=== PATIENT | male | born 1990 | race Caucasian/White ===

== ENCOUNTER 2022-04-30 15:27 | Outpatient (CLI) | payer OTHER ==
--- NOTE | 2022-04-30 18:40 | XRAY Report ---
PROCEDURE: Chest 2 View X-Ray INDICATIONS: PAIN TECHNIQUE: 2 views of the chest were acquired. COMPARISON: None. FINDINGS: Surgical changes and devices: None. Lungs and pleura: No pleural effusions or pneumothorax. Lungs are clear. Mediastinum: Mediastinal contours are normal. Heart size is normal. Bones and chest wall: No suspicious bony abnormalities. Soft tissues appear unremarkable. IMPRESSION: No acute cardiopulmonary abnormality. Reviewed by: Kurtis Redmond MD on 04/30/2022 6:39 PM PST Approved by: Kurtis Redmond MD on 04/30/2022 6:39 PM [facility] Station ID: [id number]
--- NOTE | 2022-04-30 18:42 | XRAY Report ---
PROCEDURE: Lumbar Spine 2 View INDICATIONS: PAIN TECHNIQUE: 2 views of the lumbar spine were acquired. COMPARISON: None. FINDINGS: Bones: 5 xqt-igg-[id number] vertebrae are present. No significant curvature or listhesis of the lumbar spine. Minimal disc height loss L5-S1 and mild facet arthropathy at this level. Soft tissues: Overlying bowel gas pattern is normal. A 2-3 mm calcification projects over the right kidney. IMPRESSION: 1. Mild degenerative changes L5-S1. 2. A 2-3 mm calcification projects over the right kidney, nonspecific, could represent a renal stone. CT KUB could be obtained if clinically indicated. Reviewed by: Kurtis Redmond MD on 04/30/2022 6:41 PM PST Approved by: Kurtis Redmond MD on 04/30/2022 6:41 PM PST Station ID: [id number]
--- NOTE | 2022-04-30 18:44 | XRAY Report ---
PROCEDURE: Thoracic Spine 2 View INDICATIONS: PAIN TECHNIQUE: 2 views of the thoracic spine were acquired. COMPARISON: None. FINDINGS: Bones: No fractures or dislocations. No suspicious bony lesions. 12 pairs of ribs are noted, and a ppear intact where visualized. Mild multilevel degenerative changes present. Soft tissues: No paravertebral stripe thickening. IMPRESSION: No definite thoracic spine fracture identified radiographically. If symptoms persist, follow-up radio graphs and/or CT or MRI may be helpful for further evaluation. Reviewed by: Kurtis Redmond MD on 04/30/2022 6:43 PM PST Approved by: Kurtis Redmond MD on 04/30/2022 6:43 PM [facility] Station ID: [id number]
== END 2022-04-30 15:28 | disposition home or self-care (01) ==
LOC: DI 15:27
PROVIDERS: ATTEND Registered Nurse
DX: R07.81 Pleurodynia (principal); M47.817 Spondylosis without myelopathy or radiculopathy, lumbosacral region; N28.89 Other specified disorders of kidney and ureter; M54.6 Pain in thoracic spine

== ENCOUNTER 2022-09-17 13:44 | Outpatient (CLI) | payer OTHER ==
--- NOTE | 2022-09-17 19:08 | MRI Report ---
PROCEDURE: LUMBAR SPINE WO INDICATIONS: LOW BACK PAIN TECHNIQUE: Noncontrast sagittal T1 spin echo and T2 fast echo, sagittal STIR, axial T1 and T2 fast spin echo thr ough the lumbar spine. In cases with scoliosis, additional coronal T2 fast spin echo may be performe d. COMPARISON: Lumbar spine radiographs dated 04/30/2022 FINDINGS: Image quality: Excellent. Alignment and Curvature: There is normal bony alignment. Bone Marrow: Marrow is of normal overall signal. No acute vertebral body compression fractures. Spinal Cord: Conus medullaris terminates at the L1-2 level. Visualized cord demonstrates normal sig nal and size. Paraspinous Soft Tissues: No paravertebral masses. T12-L1: No significant neuroforaminal stenosis or spinal canal stenosis. L1-L2: No significant neuroforaminal stenosis or spinal canal stenosis. L2-L3: No significant neuroforaminal stenosis or spinal canal stenosis. L3-L4: No significant neuroforaminal stenosis or spinal canal stenosis. L4-L5: No significant neuroforaminal stenosis or spinal canal stenosis. L5-S1: No significant neuroforaminal stenosis or spinal canal stenosis. IMPRESSION: MRI lumbar spine without acute abnormalities. No significant neuroforaminal stenosis or spinal canal stenosis. No significant spondylitic changes identified. Reviewed by: Eloy Meadows MD on 09/17/2022 6:06 PM [facility] Approved by: Eloy Meadows MD on 09/17/2022 6:06 PM [facility] Station ID: [id number]
== END 2022-09-17 13:45 | disposition home or self-care (01) ==
LOC: DI 13:44
DX: M54.50 Low back pain, unspecified (principal)

== ENCOUNTER 2023-05-21 18:29 | Emergency (ER) | payer OTHER ==
[2023-05-21 18:40] VITALS: O2SAT 100
--- NOTE | 2023-05-21 18:42 | ED Physician Documentation ---
PD HPI ABD PAIN - Stated complaint Stated Complaint: - Chief complaint Chief Complaint: Abd Pain - History obtained from History obtained from: Patient - Additional information Additional information: He has a remote history of a single conservatively manage kidney stone many years ago. Starting today he developed left flank pain and gross hematuria. The pain is quite severe. No nausea or vomiting. No fevers. PD PAST MEDICAL HISTORY - Past Medical History Past Medical History: Yes Psych: Depression - Past Surgical History Past Surgical History: Yes General: Appendectomy - Present Medications Home Medications: Ambulatory Orders Medication Instructions Recorded Confirmed Ibuprofen [Motrin] 600 mg PO Q6H PRN #20 tab 05/21/23 Oxycodone HCl/Acetaminophen 1 - 2 each PO Q6H PRN #14 tablet 05/21/23 [Percocet 5-325 mg Tablet] - Allergies Allergies/Adverse Reactions: Allergies Allergy/AdvReac Type Severity Reaction Status Date / Time No Known Drug Allergies Allergy Verified 05/21/23 18:31 - Social History Does the pt smoke?: No Smoking Status: Never smoker Does the pt drink ETOH?: No Does the pt have substance abuse?: No - Immunizations Immunizations are current?: Yes - POLST Patient has POLST: No PD ED PE NORMAL - Vitals Vital signs reviewed: Yes - General General: Alert and oriented X 3, Other (Appears uncomfortable) - Abdomen Abdomen: Non tender - Back Back: No CVA TTP - Neuro Neuro: Alert and oriented X 3 Results - Vitals Vitals: Vital Signs - 24 hr 05/21/23 18:31 Temperature 36.8 C Heart Rate 60 Respiratory 16 Rate Blood Pressure 133/81 H O2 Saturation 100 Oxygen O2 Source Room air - Labs Labs: Laboratory Tests 05/21/23 05/21/23 05/21/23 18:45 18:45 19:05 WBC 4.9 RBC 4.53 L Hgb 13.7 L Hct 40.6 L MCV 89.6 MCH 30.2 MCHC 33.7 RDW 12.1 Plt Count 256 MPV 10.2 Neut # (Auto) 2.5 Lymph # (Auto) 1.7 [place] # (Auto) 0.5 Eos # (Auto) 0.1 Baso # (Auto) 0.0 Absolute Nucleated RBC 0.00 Nucleated RBC % 0.0 Sodium 139 Potassium 3.6 Chloride 103 Carbon Dioxide 31 Anion Gap 5.0 L BUN 13 Creatinine 0.8 Estimated GFR (MDRD) 114 Glucose 105 H Calcium 10.0 Total Bilirubin 0.6 AST 19 ALT 38 Alkaline Phosphatase 53 Total Protein 7.6 Albumin 4.9 Globulin 2.7 Albumin/Globulin Ratio 1.8 Urine Color RED/BLOODY Urine Clarity CLOUDY Urine pH 8.0 H Ur Specific [place] 1.020 Urine Protein 100 H Urine Glucose (UA) NEGATIVE Urine Ketones NEGATIVE Urine Occult Blood LARGE H Urine Nitrite NEGATIVE Urine Bilirubin NEGATIVE Urine Urobilinogen 4 H Ur Leukocyte Esterase NEGATIVE Urine RBC TNTC H Urine WBC 0-3 Ur Squamous Epith Cells FEW Squamous Urine Bacteria Rare Ur Microscopic Review INDICATED Urine Culture Comments NOT INDICATED - Rads (name of study) ct kub Relevant Findings:: Final report received, EMP independent interpretation of test PD Medical Decision Making - ED course ED course: He has a history of renal colic and presents with colicky pain and gross hematuria. He appears uncomfortable but did improve with pain medications here. Workup demonstrates mild nonspecific anemia, normal chemistries, and bloody urine without infection. Pain was treated stepwise with Toradol and Dilaudid with good effect. Subsequently a CT scan was obtained showing 2 mm left ureteral stone and also a 4 mm right ureteral stone without obstruction on the right side. The left side was bothering him. He has multiple stones in both kidneys though and urologic follow-up was advised. Departure - Departure Disposition: 01 Home, Self Care Clinical Impression: Renal colic on left side Condition: Good Record reviewed to determine appropriate education?: Yes Instructions: ED Stone Renal W Colic Prescriptions: Ibuprofen [Motrin] 600 mg PO Q6H PRN #20 tab PRN Reason: Pain Oxycodone HCl/Acetaminophen [Percocet 5-325 mg Tablet] 1 - 2 each PO Q6H PRN #14 tablet PRN Reason: pain Comments: I sent your prescription electronically to the [facility] pharmacy. As discussed, you have multiple kidney stones on both sides and there was a tiny stone in the left ureter that is causing your pain today. 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 Return for new or worsening symptoms. I am prescribing a short course of narcotic pain medication for you. These are potentially dangerous and addictive medications that should be used carefully. These medications may constipate you. Take an rzrc-fqf-fvaymtk stool softener (docusate) twice daily with plenty of water while taking these medications. If you go 24 hours without a bowel movement, take vcre-jew-zrtqopo miralax, per package instructions. Do not drink or drive while taking these medications. If you received narcotic or sedating medications while in the emergency department, do not drive for 24 hours. Store this medication in a safe, secure place and out of reach of children. It is a violation of federal law to give or sell this medication to another person or to use in a manner other than prescribed. The ED will not refill narcotic prescriptions, including prescriptions lost or stolen. To dispose of unwanted medications: 1. [facility] provides a drop box for medication in pill form only (no liquids) 8:00 am to 4:30 p.m. Saturday-Saturday in the lobby of the [facility], [address] [place] [address]. Empty pills into ziplock bag before disposal. Call [phone] for information. 2.[employer] is a free service available to all [facility] residents. Go to [email or web address]/ Note that many narcotic pain relievers also contain Tylenol/acetaminophen. Please ensure that your total dose of acetaminophen from all sources does not exceed 3 g (3000 mg) per day. Forms: Activity restrictions
[2023-05-21 18:51] LABS: BASOPHILS % (AUTO) 0.8 %; EOSINOPHILS # (AUTO) 0.1 10^3/uL (0.0-0.7); EOSINOPHILS % (AUTO) 2.5 %; HCT - HEMATOCRIT 40.6 % (42.0-52.0); HGB - HEMOGLOBIN 13.7 g/dL (14.0-18.0); LYMPHOCYTES # (AUTO) 1.7 10^3/uL (1.5-3.5); MEAN CORPUSCULAR HEMOGLOBIN 30.2 pg (27.0-31.0); MEAN CORPUSCULAR HGB CONC 33.7 g/dL (32.0-36.0); MEAN CORPUSCULAR VOLUME 89.6 fL (80.0-94.0); MEAN PLATELET VOLUME 10.2 fL (7.4-11.4); MONOCYTES # (AUTO) 0.5 10^3/uL (0.0-1.0); MONOCYTES % (AUTO) 10.3 %; NEUTROPHILS # (AUTO) 2.5 10^3/uL (1.5-6.6); NEUTROPHILS % (AUTO) 52.2 %; PLT - PLATELET COUNT 256 10^3/uL (130-450); RED BLOOD COUNT 4.53 10^6/uL (4.70-6.10); RED CELL DISTRIBUTION WIDTH 12.1 % (12.0-15.0); WHITE BLOOD COUNT 4.9 x10^3/uL (4.8-10.8)
[2023-05-21] MEDS: KETOROLAC 15 MG/ML VIAL IVP STA (19:02)
[2023-05-21] MEDS: HYDROmorphone 1 MG/ML CARPUJECT IVP STA ×2 (19:03→21:06)
[2023-05-21 19:08] LABS: ALBUMIN 4.9 g/dL (3.2-5.5); ALBUMIN/GLOBULIN RATIO 1.8 (1.0-2.2); BILIRUBIN,TOTAL 0.6 mg/dL (0.2-1.0); CREATININE 0.8 mg/dL (0.6-1.3); POTASSIUM 3.6 mmol/L (3.5-4.5); TOTAL PROTEIN 7.6 g/dL (6.4-8.9)
[2023-05-21 19:37] LABS: BILIRUBIN,URINE NEGATIVE (NEGATIVE); GLUCOSE, URINE (UA) NEGATIVE (NEGATIVE); KETONES,URINE (UA) NEGATIVE (NEGATIVE); LEUKOCYTE ESTERASE, URINE NEGATIVE (NEGATIVE); NITRITE,URINE NEGATIVE (NEGATIVE); OCCULT BLOOD,URINE LARGE (NEGATIVE); PROTEIN,URINE 100 mg/dL (NEGATIVE); UROBILINOGEN,URINE 4 E.U./dL (NORMAL)
[2023-05-21 19:38] LABS: CLARITY,URINE CLOUDY (CLEAR)
[2023-05-21 19:39] LABS: BACTERIA,URINE Rare /HPF (None Seen); RBC,URINE TNTC /HPF (0-5); SQUAMOUS EPITHELIAL CELL,UR FEW Squamous (<= Few); WBC,URINE 0-3 /HPF (0-3)
--- NOTE | 2023-05-21 20:09 | CT Report ---
PROCEDURE: Abdomen/Pelvis WO INDICATIONS: L flank pain TECHNIQUE: A CT scan of the abdomen and pelvis was performed without the use of intravenous contrast. Images we re recorded and evaluated at appropriate window settings. Reformats: coronal and sagittal. For radiat ion dose reduction, the following was used: automated exposure control, adjustment of mA and/or kV ac cording to patient size. COMPARISON: None. FINDINGS: Image quality: Diagnostic. Lower chest: Unremarkable. Liver: No contour-deforming mass. Gallbladder and biliary tree: No radiopaque stones or wall thickening. No biliary dilation. Spleen: No splenomegaly. Pancreas: No pancreatic ductal dilation. Adrenals: No adrenal nodule. Kidneys and ureters: Multiple bilateral renal stones identified. These measure up to 2 mm on the righ t and 3 mm on the left. There is minimal left hydroureter secondary to a nonobstructing 2 mm mid righ t ureteral stone (90/series 2). There is also a 4 mm right renal pelvic stone visualized right at the right UPJ. No right-sided hydronephrosis. No perinephric stranding. Stomach, bowel and peritoneum: No bowel distension. No pathologic free fluid. Appendix is not definit ively visualized but no secondary findings for acute inflammation. Lymph nodes: No central or retroperitoneal adenopathy. Vessels: No infrarenal aortic aneurysm. PELVIS Reproductive organs: Unremarkable. Bladder: No wall thickness, accounting for underdistention. Pelvic lymph nodes: No pelvic adenopathy by size criteria. Bones: No aggressive osseous abnormality. Other: No significant ventral or inguinal hernia. IMPRESSION: Multiple bilateral renal stones identified with a nonobstructing 4 mm distal right UPJ stone without associated right hydronephrosis or perinephric stranding. There is a mildly obstructing mid left uret eral stone measuring 2 mm with minimal left hydroureter ureter. No acute inflammatory changes. Appendix is not definitively visualized but no secondary findings for acute inflammation. Reviewed by: Eloy Meadows MD on 05/21/2023 8:08 PM PDT Approved by: Eloy Meadows MD on 05/21/2023 8:08 PM PDT Station ID: [id number]
[2023-05-21 21:06] VITALS: BP 146/100
[2023-05-21] MEDS: oxyCODONE/ACET 5/325 Prepack 4 PO STA (21:06)
== END 2023-05-21 21:07 | disposition home or self-care (01) ==
LOC: ED 18:29
DX: N20.2 Calculus of kidney with calculus of ureter (principal); Z87.442 Personal history of urinary calculi
CPT/HCPCS: 36415; 74176; 80053; 81001; 85025; 96374; 96375; 99284; 99285; J1170; 81003; 87086

== ENCOUNTER 2023-05-22 10:31 | Day surgery (SDC) | payer OTHER ==
--- NOTE | 2023-05-22 10:56 | ED Physician Documentation ---
PD HPI ABD PAIN - Stated complaint Stated Complaint: BACK PX,,VOMIT - Chief complaint Chief Complaint: Abd Pain - History obtained from History obtained from: Patient - Additional information Additional information: Patient is a 32-year-old male presenting for evaluation of worsening left flank pain. Patient was seen yesterday in the emergency department and diagnosed with a right distal ureter stone measuring 4 mm and a left ureter stone measuring 2 mm. He received Toradol and Dilaudid for pain control in the ER.He was given a prescription for Percocet. He reports having nausea and vomiting and having difficulty in keeping his pain medication down. He did have Zofran at home which did not relieve his symptoms. He is also had difficulty with urination. He feels the urge to urinate but has not been able to do so since last night. Denies fevers. Review of Systems Constitutional: denies: Fever Cardiac: denies: Chest pain / pressure Respiratory: denies: Dyspnea GI: reports: Abdominal Pain, Nausea, Vomiting. denies: Diarrhea : reports: Unable to Void PD PAST MEDICAL HISTORY - Past Medical History Psych: Depression - Past Surgical History Past Surgical History: Yes General: Appendectomy - Present Medications Home Medications: Ambulatory Orders Medication Instructions Recorded Confirmed Ibuprofen [Motrin] 600 mg PO Q6H PRN #20 tab 05/21/23 Oxycodone HCl/Acetaminophen 1 - 2 each PO Q6H PRN #14 tablet 05/21/23 [Percocet 5-325 mg Tablet] Docusate Sodium 100Mg Capsule 100 mg PO DAILY #21 cap 05/22/23 [Colace 100Mg Capsule] Tamsulosin HCl [Flomax] 0.4 mg PO DAILY PM #28 cap 05/22/23 - Allergies Allergies/Adverse Reactions: Allergies Allergy/AdvReac Type Severity Reaction Status Date / Time No Known Drug Allergies Allergy Verified 05/21/23 18:31 - Social History Does the pt smoke?: No Smoking Status: Never smoker Does the pt drink ETOH?: No Does the pt have substance abuse?: No - Immunizations Immunizations are current?: Yes - POLST Patient has POLST: No PD ED PE NORMAL - General General: Alert and oriented X 3, Well developed/nourished, Other (Appears uncomfortable) - HEENT HEENT: Atraumatic, Moist mucous membranes, Pharynx benign - Neck Neck: Supple, no meningeal sign - Cardiac Cardiac: RRR, Strong equal pulses - Respiratory Respiratory: No respiratory distress, Clear bilaterally - Abdomen Abdomen: Normal bowel sounds, Soft, Non tender, Non distended - Back Back: No CVA TTP - Derm Derm: Warm and dry - Neuro Neuro: Normal speech Results - Vitals Vitals: Vital Signs - 24 hr 05/22/23 05/22/23 05/22/23 10:39 11:17 11:58 Temperature 36.7 C Heart Rate 71 70 98 Respiratory 16 19 18 Rate Blood Pressure 131/70 H 141/98 H O2 Saturation 100 100 99 05/22/23 05/22/23 05/22/23 12:18 12:24 12:25 Temperature 36.7 C 36.7 C Heart Rate 98 Respiratory 18 18 17 Rate Blood Pressure 141/98 H O2 Saturation 99 Oxygen O2 Source Room air - Labs Labs: Laboratory Tests 05/22/23 05/22/23 10:54 10:54 WBC 12.5 H RBC 4.81 Hgb 14.0 Hct 42.5 MCV 88.4 MCH 29.1 MCHC 32.9 RDW 12.0 Plt Count 286 MPV 10.3 Neut # (Auto) 10.8 H Lymph # (Auto) 0.6 L [place] # (Auto) 1.0 Eos # (Auto) 0.0 Baso # (Auto) 0.0 Absolute Nucleated RBC 0.00 Nucleated RBC % 0.0 Sodium 136 Potassium 3.9 Chloride 99 L Carbon Dioxide 27 Anion Gap 10.0 BUN 19 Creatinine 1.9 H Estimated GFR (MDRD) 42 L Glucose 109 H Calcium 10.6 H Total Bilirubin 0.9 AST 21 ALT 37 Alkaline Phosphatase 55 Total Protein 8.2 Albumin 5.4 Globulin 2.8 Albumin/Globulin Ratio 1.9 Lipase 13 PD Medical Decision Making - ED course Complexity details: reviewed results, re-evaluated patient, d/w patient ED course: 1145 - Discussed with on-call urology, Dr. Sears. He will take the patient to the OR for same-day surgery. Please keep NPO. Patient is a 32-year-old male presenting for evaluation of worsening abdominal pain. Seen here yesterday and diagnosed with bilateral ureter stones. Having worsening pain and now nausea and vomiting. His CBC and chemistries were reviewed and patient now has acute kidney injury with a creatinine of 1.9 and a mild leukocytosis of 12. Unable to void and bladder scan is 0. Discussed with on-call urology given new renal failure and anuria and he will be taken to the OR. Vital signs are stable. The patient received IV Toradol, Dilaudid, Zofran and IV fluids with improvement in his pain. Departure - Departure Disposition: ED Transfer to [facility] Clinical Impression: Acute renal failure, Bilateral ureteral calculi, Leukocytosis Condition: Good
[2023-05-22 11:00] LABS: BASOPHILS % (AUTO) 0.2 %; EOSINOPHILS % (AUTO) 0.1 %; HCT - HEMATOCRIT 42.5 % (42.0-52.0); LYMPHOCYTES # (AUTO) 0.6 10^3/uL (1.5-3.5); LYMPHOCYTES % (AUTO) 4.9 %; MEAN CORPUSCULAR HEMOGLOBIN 29.1 pg (27.0-31.0); MEAN CORPUSCULAR HGB CONC 32.9 g/dL (32.0-36.0); MEAN CORPUSCULAR VOLUME 88.4 fL (80.0-94.0); MEAN PLATELET VOLUME 10.3 fL (7.4-11.4); MONOCYTES % (AUTO) 7.7 %; NEUTROPHILS # (AUTO) 10.8 10^3/uL (1.5-6.6); NEUTROPHILS % (AUTO) 86.8 %; PLT - PLATELET COUNT 286 10^3/uL (130-450); RED BLOOD COUNT 4.81 10^6/uL (4.70-6.10); WHITE BLOOD COUNT 12.5 x10^3/uL (4.8-10.8)
[2023-05-22] MEDS: SODIUM CHLORIDE 0.9% 1,000 ML IV STA ×2 (11:10→12:13)
[2023-05-22] MEDS: ONDANSETRON 4 MG/2 ML VIAL IVP STA (11:13)
[2023-05-22] MEDS: KETOROLAC 30 MG/ML VIAL IVP STA (11:15)
[2023-05-22 11:16] LABS: ALBUMIN 5.4 g/dL (3.2-5.5); ALBUMIN/GLOBULIN RATIO 1.9 (1.0-2.2); BILIRUBIN,TOTAL 0.9 mg/dL (0.2-1.0); CALCIUM 10.6 mg/dL (8.5-10.3); CREATININE 1.9 mg/dL (0.6-1.3); POTASSIUM 3.9 mmol/L (3.5-4.5); TOTAL PROTEIN 8.2 g/dL (6.4-8.9)
[2023-05-22] MEDS: HYDROmorphone 1 MG/ML CARPUJECT IVP STA (11:16)
[2023-05-22] MEDS: LIDOCAINE JELLY 2% 6 ML JEL.PF.APP UR ONE (12:20)
[2023-05-22] MEDS ORDERED: LIDOCAINE 2% URO-JET 5 ML SYRINGE UR ONE (12:20)
--- NOTE | 2023-05-22 12:23 | SURGERY HX AND PHYSICAL(T) ---
Surgical History & Physical - Chief Complaint/HPI Chief Complaint: Left flank pain, vomiting History of Present Illness: Marques is a 32-year-old male with history of kidney stones who has never had a procedure for kidney stone who presented to the hospital yesterday with acute flank pain. He had gross hematuria at the time as well. A CT scan showed a 2 mm distal left ureteral stone which had mild hydro ureter behind it. He also had a noted 4 mm UPJ stone on the contralateral right side which did not appear obstructing on imaging. He was sent home with conservative treatment after pain control. He presented today with worsening abdominal pain and vomiting. He has not urinated. His creatinine has worsened from 0.8 to 1.9. Urology was consulted at this point in time. He is seen at the bedside in the ER. - PMH/PSH/Social Hx Does the pt have a hx of MRSA?: No Psychiatric: Depression General: Appendectomy Smoking Status: Never smoker Does the pt drink ETOH?: No Does the pt have substance abuse?: No - Home Meds and Allergies Allergies/Adverse Reactions: Allergies Allergy/AdvReac Type Severity Reaction Status Date / Time No Known Drug Allergies Allergy Verified 05/21/23 18:31 - Vital Signs Heart Rate: 98 Blood Pressure: 141/98 Temperature: 36.7 C Respiratory Rate: 18 O2 Saturation: 99 Weight (kg): 61.235 kg Height: 1.73 m - Physical Exam General Appearance: positive: Other (clammy) Respiratory: positive: Breath sounds nml Cardiovascular: positive: Tachycardia - Patient Review Patient Review: Problems were reviewed with the patient during this visit. Medications were reviewed with the patient during this visit. Allergies were reviewed this patient during this visit. Pertinent Tests Reviewed: All pertitent test for this patient were reviewed. - Assessment & Plan Assessment and Plan: 32-year-old male with bilateral obstructing ureteral stones. Acute renal failure. He appears clammy and in mild distress at bedside likely related to the nausea and vomiting from his stones. I recommend an emergent cystoscopy, bilateral ureteral stent placement. Risks of infection, bleeding, injury to adjacent structures, need for additional procedures were discussed. We discussed that this will not likely remove his stones but will unblock his kidneys given his renal dysfunction. He will likely need ureteroscopy's in the future. I suspect he will be able to go home after this procedure. All questions answered patient states understanding consents the above plan
--- NOTE | 2023-05-22 12:28 | ANESTHESIA ---
Pre-Anesthesia VS, & Labs - Diagnosis B OBSTRUCTING URETERAL STONES - Procedure CYSTO/B STENTS Vital Signs: Temp Pulse Resp BP Pulse Ox O2 Flow Rate 36.7 C 98 17 141/98 H 99 05/22/23 12:25 05/22/23 12:24 05/22/23 12:25 05/22/23 12:24 05/22/23 12:24 Height: 5 ft 8 in Weight (kg): 61.235 kg Body Mass Index: 20.5 BMI Classification: Normal - NPO Last Food Intake: MUFFIN AT 0900; VOMITED U - Lab Results Current Lab Results: Laboratory Tests 05/22/23 10:54: Sodium 136, Potassium 3.9, Chloride 99 L, Carbon Dioxide 27, Anion Gap 10.0, BUN 19, Creatinine 1.9 H, Estimated GFR (MDRD) 42 L, Glucose 109 H, Calcium 10.6 H, Total Bilirubin 0.9, AST 21, ALT 37, Alkaline Phosphatase 55, Total Protein 8.2, Albumin 5.4, Globulin 2.8, Albumin/Globulin Ratio 1.9, Lipase 13 05/22/23 10:54: WBC 12.5 H, RBC 4.81, Hgb 14.0, Hct 42.5, MCV 88.4, MCH 29.1, MCHC 32.9, RDW 12.0, Plt Count 286, MPV 10.3, Neut # (Auto) 10.8 H, Lymph # (Auto) 0.6 L, [place] # (Auto) 1.0, Eos # (Auto) 0.0, Baso # (Auto) 0.0, Absolute Nucleated RBC 0.00, Nucleated RBC % 0.0 Fish Bones: 05/22/23 10:54 05/22/23 10:54 Home Medications and Allergies Active Medications Sodium Chloride (Normal Saline 0.9%) 1,000 mls @ 150 mls/hr IV .Q6H40M STA Stop: 05/22/23 18:41 Last Admin: 05/22/23 12:13 Dose: 150 mls/hr Allergies/Adverse Reactions: Allergies Allergy/AdvReac Type Severity Reaction Status Date / Time No Known Drug Allergies Allergy Verified 05/21/23 18:31 Anes History & Medical History - Anesthetic History Anesthesia Complications: reports: No previous complications Family history of Anesthesia Complications: Denies - Medical History Cardiovascular: reports: None Pulmonary: reports: None Gastrointestinal: reports: GERD Urinary: reports: Kidney stones Neuro: reports: None Musculoskeletal: reports: Other (RECENT BACK INJURY; STIFF NECK; LIMITED MOTION) Smoking Status: Never smoker - Surgical History General: reports: Appendectomy Exam General: Alert Dental: WNL Mouth Openin Fingerbreadth Neck Mobility: Reduced Mallampati classification: II Thyromental Distance: less than 4 cm Respiratory: Lungs clear Cardiovascular: Regular rate Plan Anesthesia Type: General Consent for Procedure(s) Verified and Reviewed: Yes Code Status: Attempt Resuscitation ASA classification: 2-Mild systemic disease Is this case an emergency?: Yes (OBSTRUCTING STONES)
[2023-05-22] MEDS ORDERED: MORPHINE 2 MG/ML CARPUJECT IVP PRN (12:29)
[2023-05-22] MEDS ORDERED: METOCLOPRAMIDE 10 MG/2 ML VIAL IVP PRN (12:29)
[2023-05-22] MEDS ORDERED: NALOXONE 0.4 MG/ML VIAL IVP PRN (12:29)
[2023-05-22] MEDS ORDERED: fentaNYL 100 MCG/2 ML VIAL IVP PRN (12:29)
[2023-05-22] MEDS ORDERED: ONDANSETRON 4 MG/2 ML VIAL IVP PRN ×2 (12:29→13:06)
[2023-05-22] MEDS ORDERED: ePHEDrine 50 MG/ML VIAL IVP PRN (12:29)
[2023-05-22] MEDS ORDERED: ATROPINE ABBOJECT 1 MG/10 ML SYRINGE IVP PRN (12:29)
[2023-05-22] MEDS ORDERED: ROCURONIUM 50 MG/5 ML VIAL ONE (12:36)
[2023-05-22] MEDS ORDERED: PROPOFOL 200 MG/20 ML VIAL IVP ONE (12:36)
[2023-05-22] MEDS ORDERED: LIDOCAINE-PF 2% 10 ML AMP SUBQ ONE (12:36)
[2023-05-22] MEDS ORDERED: fentaNYL 100 MCG/2 ML VIAL ONE (12:37)
[2023-05-22] MEDS ORDERED: ceFAZolin 1 GM VIAL ONE (12:49)
[2023-05-22] MEDS ORDERED: ONDANSETRON 4 MG/2 ML VIAL ONE (12:56)
[2023-05-22] MEDS ORDERED: DEXAMETHASONE 4 MG/ML VIAL ONE (12:56)
[2023-05-22] MEDS ORDERED: LACTATED RINGERS 1,000 ML IV SCH (13:00)
[2023-05-22] MEDS ORDERED: HYDROmorphone 0.5 MG/0.5 ML SYRINGE IVP PRN (13:06)
[2023-05-22] MEDS ORDERED: SUGAMMADEX 200 MG/2 ML VIAL IVP ONE (13:07)
--- NOTE | 2023-05-22 13:11 | OPERATIVE REPORT ---
Operative Report - General Procedure Date: 05/22/23 Planned Procedure: Cystoscopy, bilateral ureteral stent placement Pre-Op Diagnosis: Bilateral obstructing ureteral stones Procedure Performed: Cystoscopy, bilateral ureteral stent placement Post Op Diagnosis: Bilateral obstructing ureteral stones - Procedure Note Primary Surgeon: Orion Anesthesia Provider: ARABELLA Loomis Anesthesia Technique: General ET tube Estimated Blood Loss (mL): 0 Indications: Left 2 mm distal ureteral obstructing stone, right 4 mm UPJ obstructing stone, acute renal failure Findings: Bilateral stents placed with immediate return of clear yellow urine Complications: none - Other Other Information/Narrative: After informed consent was obtained the patient was brought to the OR and laid in the supine position. The patient was anesthetized per anesthesia protocols and prepped and draped in usual sterile fashion in the dorsolithotomy position. A formal timeout was performed reconfirming the patient, procedure and laterality. 22 Ecuadorean cystoscope was advanced easily into the urinary bladder. Bladder inspected and full and no masses lesions or other concerns were identified. Imaging Technologist imaging showed no obvious radiopacities that could be seen. A sensor wire was placed up his left ureter cannulated into the kidney. A 6 Ecuadorean 26 cm double-J stent was placed with good curling noted in the kidney and good curling noted in the bladder. There was return of clear yellow urine at that point in time from the stent. Attention was paid to the right side where a sensor wire again was used to can nulate the right ureteral orifice and a sensor wire was placed up into the kidney. A 6 Ecuadorean 26 cm double-J stent was placed with good curling noted in the kidney and good curling of the bladder. Clear yellow urine was seen to efflux from the stent. The bladder was emptied and a Uro-Jet was placed. This concluded the procedure and the patient tolerated the procedure well. He was brought to the PACU without further incident. He will be monitored for several hours and assuming that his pain and nausea improves and he is able to void for us then he can be safely discharged to home. He will need definitive bilateral ureteroscopy for management
--- NOTE | 2023-05-22 13:11 | Discharge Plan ---
Discharge Plan Problem Reviewed?: Yes Disposition: Home, Self Care Condition: Good Prescriptions: Docusate Sodium 100Mg Capsule [Colace 100Mg Capsule] 100 mg PO DAILY #21 cap Tamsulosin HCl [Flomax] 0.4 mg PO DAILY PM #28 cap Diet: Regular Activity Restrictions: No Restrictions Shower Restrictions: No Driving Restrictions: Yes (do not drive if taking pain medications) Instruction Topics: Stents Ureteral Additional Instructions or Follow Up instructions: You will be contacted for follow-up with Dr. Sears in the next week or 2 No Smoking: If you smoke, Please STOP! Call for help.
[2023-05-22] MEDS: LACTATED RINGERS 1,000 ML IV ONE (13:31)
[2023-05-22] MEDS ORDERED: HYDROmorphone 0.5 MG/0.5 ML SYRINGE ONE (13:41)
[2023-05-22] MEDS: HYDROmorphone 0.5 MG/0.5 ML SYRINGE IVP PRN (13:41)
[2023-05-22] MEDS ORDERED: oxyCODONE 5 MG TABLET PO STA (14:11)
[2023-05-22] MEDS: oxyCODONE 5 MG TABLET ONE (14:16)
[2023-05-22 14:19] VITALS: O2SAT 100
[2023-05-22 15:07] VITALS: BP 122/78
--- NOTE | 2023-05-22 16:53 | XRAY Report ---
PROCEDURE: OR C-Arm Procedure INDICATIONS: STENT FLUORO TIME: 0.01 MIN TECHNIQUE: 5 intraoperative fluoroscopic images of abdomen were obtained. COMPARISON: None. FINDINGS: Intraoperative fluoroscopic images shows bilateral ureteral stent placement. IMPRESSION: Fluoroscopy guidance was provided intraoperatively for bilateral ureteral stent placement. Reviewed by: Catalino Vazquez MD on 05/22/2023 4:51 PM PDT Approved by: Catalino Vazquez MD on 05/22/2023 4:51 PM PDT Station ID: [id number]
== END 2023-05-22 12:23 | disposition home or self-care (01) ==
LOC: ED 10:31 → SDS 12:22
PROVIDERS: ATTEND Urology
DX: N20.1 Calculus of ureter (principal); N13.4 Hydroureter; N17.9 Acute kidney failure, unspecified
CPT/HCPCS: 36415; 52332; 80053; 83690; 85025; A9270; C1758; C2617; J1170; J7120; 96374; 96375; 99285

== ENCOUNTER 2023-06-04 09:03 | Day surgery (SDC) | payer OTHER ==
[~2023-06-04 09:03] MED LIST: ceFAZolin 2 GM VIAL ONE
[2023-06-04] MEDS: LACTATED RINGERS 1,000 ML IV ONE ×2 (09:21→11:40)
--- NOTE | 2023-06-04 09:37 | ANESTHESIA ---
Pre-Anesthesia VS, & Labs - Diagnosis B kidney stones - Procedure B flexible cysto, possible stent exchange Vital Signs: Temp Pulse Resp BP Pulse Ox O2 Flow Rate 36.3 C L 64 16 120/80 100 06/04/23 09:22 06/04/23 09:22 06/04/23 09:22 06/04/23 09:22 06/04/23 09:22 Height: 5 ft 8 in Weight (kg): 60.6 kg Body Mass Index: 20.2 BMI Classification: Normal - NPO >8 hours Home Medications and Allergies Home Medications: Ambulatory Orders Gabapentin [Neurontin] 300 mg PO DAILY 05/27/23 Propranolol HCl 20 mg PO DAILY PRN 05/27/23 SUMAtriptan [Imitrex] 50 mg PO ONCE PRN 05/27/23 Sertraline HCl 100 mg PO DAILY 05/27/23 Gabapentin [Neurontin] 300 mg PO DAILY 05/27/23 Propranolol HCl 20 mg PO DAILY PRN 05/27/23 SUMAtriptan [Imitrex] 50 mg PO ONCE PRN 05/27/23 Sertraline HCl 100 mg PO DAILY 05/27/23 Allergies/Adverse Reactions: Allergies Allergy/AdvReac Type Severity Reaction Status Date / Time adhesive Allergy Rash Verified 06/04/23 09:28 Anes History & Medical History - Anesthetic History Anesthesia Complications: reports: No previous complications Family history of Anesthesia Complications: Denies Family history of Malignant Hyperthermia: Denies - Medical History Cardiovascular: reports: None Pulmonary: reports: None Gastrointestinal: reports: GERD Urinary: reports: Kidney stones Neuro: reports: None Musculoskeletal: reports: Chronic back pain, Other Endocrine/Autoimmune: reports: None Skin: reports: None Smoking Status: Never smoker Psychosocial: reports: No issues indicated History of Cancer?: No - Surgical History General: reports: Appendectomy Urologic: reports: Kidney stents Exam General: Alert, Oriented x3, Cooperative, No acute distress Dental: WNL Mouth Openin Fingerbreadth Neck Mobility: Normal Mallampati classification: II Thyromental Distance: 4-6 cm Respiratory: Lungs clear, Normal breath sounds, No respiratory distress, No accessory muscle use Cardiovascular: Regular rate, Normal S1, Normal S2, No murmurs Abdomen: Normal bowel sounds, Soft, No tenderness, No hepatospenomegaly, No masses Extremities: No clubbing, No cyanosis, No edema, Normal pulses, No tenderness/swelling Neurological: Normal gait, Normal speech, Strength at 5/5 X4 ext, Normal tone, Sensation intact, Cranial nerves 3-12 NL, Reflexes 2+ Mental/Cognitive Status: Alert/Oriented X3, Normal for patient Cognitive Status: Within normal limits Plan Anesthesia Type: General, Total IV Consent for Procedure(s) Verified and Reviewed: Yes Code Status: Attempt Resuscitation ASA classification: 2-Mild systemic disease Is this case an emergency?: No
[2023-06-04] MEDS ORDERED: ONDANSETRON 4 MG/2 ML VIAL IVP PRN ×2 (09:40→11:22)
[2023-06-04] MEDS ORDERED: NALOXONE 0.4 MG/ML VIAL IVP PRN (09:40)
[2023-06-04] MEDS ORDERED: MORPHINE 2 MG/ML CARPUJECT IVP PRN (09:40)
[2023-06-04] MEDS ORDERED: fentaNYL 100 MCG/2 ML VIAL IVP PRN (09:40)
[2023-06-04] MEDS ORDERED: ePHEDrine 50 MG/ML VIAL IVP PRN (09:40)
[2023-06-04] MEDS ORDERED: ATROPINE ABBOJECT 1 MG/10 ML SYRINGE IVP PRN (09:40)
[2023-06-04] MEDS ORDERED: HYDROmorphone 0.5 MG/0.5 ML SYRINGE IVP PRN (09:40)
[2023-06-04] MEDS ORDERED: METOCLOPRAMIDE 10 MG/2 ML VIAL IVP PRN (09:40)
[2023-06-04] MEDS ORDERED: LACTATED RINGERS 1,000 ML IV SCH (10:00)
[2023-06-04] MEDS ORDERED: iohexoL-240 10 ML VIAL IVP ONE ×2 (10:05→10:06)
[2023-06-04] MEDS ORDERED: LIDOCAINE 2% URO-JET 5 ML SYRINGE UR ONE (10:05)
[2023-06-04] MEDS ORDERED: PROPOFOL 200 MG/20 ML VIAL IVP ONE (10:15)
[2023-06-04] MEDS ORDERED: MIDAZOLAM 2 MG/2 ML VIAL ONE (10:16)
[2023-06-04] MEDS ORDERED: fentaNYL 100 MCG/2 ML VIAL ONE (10:16)
[2023-06-04] MEDS: LIDOCAINE 2% URO-JET 5 ML SYRINGE UR ONE (10:41)
[2023-06-04] MEDS: iohexoL-240 10 ML VIAL IVP ONE (10:41)
[2023-06-04] MEDS ORDERED: DEXAMETHASONE 4 MG/ML VIAL ONE (10:44)
[2023-06-04] MEDS ORDERED: ONDANSETRON 4 MG/2 ML VIAL ONE (10:44)
[2023-06-04] MEDS ORDERED: HYDROmorphone 1 MG/ML CARPUJECT ONE (11:13)
--- NOTE | 2023-06-04 11:27 | Discharge Plan ---
Discharge Plan Problem Reviewed?: Yes Disposition: Home, Self Care Condition: Good Prescriptions: Docusate Sodium 100Mg Capsule [Colace 100Mg Capsule] 100 mg PO DAILY #7 cap oxyCODONE [Roxicodone] 5 mg PO Q4H PRN #10 tablet PRN Reason: Pain Diet: Regular Activity Restrictions: Additional Comments (as instructed) Shower Restrictions: No Driving Restrictions: Yes (no driving while taking pain medications) Instruction Topics: Stents Ureteral Additional Instructions or Follow Up instructions: Please remove your ureteral stents as instructed on June 08 in the morning. You will be contacted for follow-up with Dr. Sears in 3 months time with a renal ultrasound No Smoking: If you smoke, Please STOP! Call for help.
[2023-06-04] MEDS: LACTATED RINGERS 100 ML IV ONE (11:29)
--- NOTE | 2023-06-04 11:50 | OPERATIVE REPORT ---
Operative Report - General Procedure Date: 06/04/23 Planned Procedure: Cystoscopy, bilateral ureteroscopy, bilateral laser lithotripsy, bilateral stent exchange Pre-Op Diagnosis: Bilateral ureteral stones Procedure Performed: Cystoscopy, bilateral ureteroscopy, bilateral laser lithotripsy, left basket stone extraction, bilateral stent exchange Post Op Diagnosis: Bilateral renal stones - Procedure Note Primary Surgeon: Starr Anesthesia Provider: ARABELLA Wilson Anesthesia Technique: General LMA Pathology: left renal stone Indications: Bilateral obstructing ureteral stones Findings: Bilateral narrow ureters. Left ureteral stone transited back towards kidney. Right-sided small stone seen with a radiopacity around a corner in the lower pole we cannot access Complications: none - Other Other Information/Narrative: After informed consent was obtained the patient was brought to the OR and laid the supine position. The patient was anesthetized per anesthesia protocols and prepped draped in usual sterile fashion in the dorsolithotomy position. A formal timeout was performed to reconfirm the patient, procedure and laterality. A 22 Pashto scope was Kang ease into urinary bladder. The bladder inspected and full bilateral stents were emanating from the ureteral orifices. Attention was paid to the left side where a sensor wire was placed next to stent up into the kidney. The old stent was removed. A flexible ureteroscope was advanced up into the kidney he was noted to have a narrow ureter and required a second sensor wire to traverse. We did not see any stones in the ureter. When we entered the kidney we could see there was a 4 mm hard dark green/brown stone which we fragmented the tiny pieces. A larger piece was grasped and removed with a basket. We then cleared the kidney from any other stones. There were no stones seen. A 6 Pashto 26 cm double-J ureteral stent was placed with good curling on the kidney and good curling noted in the bladder. On the right side we again placed sensor wire up to the right kidney and remove the old stent. A flexible ureteroscope was advanced alongside this wire into the kidney. There we only saw small stones including a 2 mm stone which we dusted Using a 200 m laser fiber. We could see no large stones. On fluoroscopy we could see that there was a 4 mm radiopacity in the lower pole which could be the previously seen UPJ stone. We tried to approach it but we could not get around a corner to see it properly so we are unsure if there is a stone there or not. We cleared the ureter and direct visualization. We then placed a 6 Pashto 26 Sri double-J ureteral stent with good curling on the kidney and good curling of the bladder. The bladder was emptied and Uro-Jet was placed. Both the stents had strings and these were taped to his penis using a Tegaderm. This concluded the procedure and the patient tolerated the procedure well. He was brought to the PACU without further incident. He will remove his stent in 5 days and follow-up in 3 months time with a renal ultrasound.
[2023-06-04] MEDS ORDERED: HYDROcod/ACETAM 5/325 MG TABLET ONE (12:19)
[2023-06-04] MEDS: HYDROcod/ACETAM 5/325 MG TABLET PO PRN (12:20)
[2023-06-04 12:26] VITALS: BP 131/89; O2SAT 100
--- NOTE | 2023-06-04 14:01 | XRAY Report ---
PROCEDURE: OR C-Arm Procedure INDICATIONS: STENT REPLACEMENT; URETEROSCOPY FLUORO TIME: 000.1 DAP: 72.4uGy*m2 TECHNIQUE: Fluoroscopic guidance was obtained for urologic procedure. COMPARISON: 05/22/2023 Findings and impression: Urologic procedure fluoroscopic guidance. Please see procedure note for full details. A stent is seen . Reviewed by: John Ramsay MD on 06/04/2023 2:00 PM PDT Approved by: John Ramsay MD on 06/04/2023 2:00 PM PDT Station ID: [id number]
--- NOTE | 2023-06-04 19:02 | ANESTHESIA POST OP EVALUATION ---
Anesthesia Post Eval - Post Anesthesia Eval Vitals: Last Vital Signs Temp 36.7 C 06/04/23 12:16 Pulse 91 06/04/23 12:16 Resp 16 06/04/23 12:16 BP 131/89 H 06/04/23 12:16 Pulse Ox 100 06/04/23 12:16 O2 Flow Rate CV Function Including HR & BP: Stable Pain Control: Satisfactory Nausea & Vomiting: Negative Mental Status: Baseline Respiratory Status: Airway Patent Hydration Status: Satisfactory Anesthesia Complications: None
[2023-06-08 15:09] LABS: CALCIUM OXALATE MONOHYDRATE 100 % (.); STONE COLOR Brown (.); STONE WEIGHT 2 mg (.)
== END 2023-06-04 09:04 | disposition home or self-care (01) ==
LOC: SDS 09:03
PROVIDERS: ATTEND Urology
DX: N20.0 Calculus of kidney (principal); G89.18 Other acute postprocedural pain; R33.9 Retention of urine, unspecified; R10.2 Pelvic and perineal pain; Z96.0 Presence of urogenital implants
CPT/HCPCS: 51702; 52356; 82365; 99283; A9270; C2617; J1170; J7120; Q9966

== ENCOUNTER 2023-06-04 20:09 | Emergency (ER) | payer OTHER ==
[2023-06-04 20:31] VITALS: BP 150/97; O2SAT 100
--- NOTE | 2023-06-04 20:55 | ED Physician Documentation ---
PD HPI MALE - Stated complaint Stated Complaint: POST OP ISSUE/ - Chief complaint Chief Complaint: Abd Pain - History obtained from History obtained from: Patient - History of Present Illness Timing - onset: Today Timing - duration: Hours Timing - details: Abrupt onset, Still present Associated symptoms: Unable to urinate Similar symptoms before: Has not had sx before Recently seen: Surgery - Additional information Additional information: Marques Marley is a 32-year-old male who has had bilateral kidney stones presented to the emergency department 12 days ago and was taken to the operating room for placement of bilateral stents. Today he went into the operating room to have the stents removed and replaced. He was doing well until later in the day when he was unable to urinate he now has severe suprapubic pain. Review of Systems Constitutional: denies: Fever Ears: denies: Ear pain Nose: denies: Congestion Throat: denies: Sore throat Respiratory: denies: Cough GI: denies: Vomiting : reports: Unable to Void PD PAST MEDICAL HISTORY - Past Medical History Past Medical History: Yes Cardiovascular: None Respiratory: None Neuro: None Endocrine/Autoimmune: None GI: GERD : Kidney stones HEENT: Chronic vision loss, Other Psych: Depression, Anxiety, Panic attacks, Post traumatic stress disorder Musculoskeletal: Chronic back pain, Other Derm: None - Past Surgical History Past Surgical History: Yes General: Appendectomy - Present Medications Home Medications: Ambulatory Orders Medication Instructions Recorded Confirmed Ibuprofen [Motrin] 600 mg PO Q6H PRN #20 tab 05/21/23 05/27/23 Tamsulosin HCl [Flomax] 0.4 mg PO DAILY PM #28 cap 05/22/23 06/04/23 Gabapentin [Neurontin] 300 mg PO DAILY 05/27/23 05/27/23 Propranolol HCl 20 mg PO DAILY PRN 05/27/23 05/27/23 SUMAtriptan [Imitrex] 50 mg PO ONCE PRN 05/27/23 05/27/23 Sertraline HCl 100 mg PO DAILY 05/27/23 05/27/23 Docusate Sodium 100Mg Capsule 100 mg PO DAILY #7 cap 06/04/23 06/04/23 [Colace 100Mg Capsule] oxyCODONE [Roxicodone] 5 mg PO Q4H PRN #10 tablet 06/04/23 06/04/23 - Allergies Allergies/Adverse Reactions: Allergies Allergy/AdvReac Type Severity Reaction Status Date / Time adhesive Allergy Rash Verified 06/04/23 20:12 - Social History Does the pt smoke?: No Smoking Status: Never smoker Does the pt drink ETOH?: No Does the pt have substance abuse?: No - Immunizations Immunizations are current?: Yes - POLST Patient has POLST: No PD ED PE NORMAL - Vitals Vital signs reviewed: Yes (tachycardic and hypertensive ) - General General: Alert and oriented X 3, No acute distress, Well developed/nourished, Other (Jostin appears distressed and in pain.) - HEENT HEENT: Atraumatic, PERRL, EOMI, Ears normal, Moist mucous membranes, Pharynx benign, Dentition benign - Neck Neck: Supple, no meningeal sign, No bony TTP - Cardiac Cardiac: RRR, No murmur - Respiratory Respiratory: No respiratory distress, Clear bilaterally - Abdomen Abdomen: Other (There is protrusion of the lower abdomen over the suprapubic area consistent with urinary retention. 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, No motor deficit, No sensory deficit, Normal speech Eye Opening: Spontaneous Motor: Obeys Commands Verbal: Oriented GCS Score: 15 - Psych Psych: Normal mood, Normal affect Results - Vitals Vitals: Vital Signs - 24 hr 06/04/23 20:12 Temperature 36.8 C Heart Rate 110 H Respiratory 22 Rate Blood Pressure 150/97 H O2 Saturation 100 Oxygen O2 Source Room air PD Medical Decision Making - ED course Complexity details: reviewed old records, reviewed results, re-evaluated patient, considered differential, d/w patient ED course: Marques Marley has had a change out of his ureter stents today and he has developed some urinary retention. He had a tender full bladder a three-way Laguerre catheter was placed anticipating potential clot retention and we found pink-tinged urine and not much in the way of clots. We did not require i rrigation. The Laguerre catheter resolved the patient's symptoms. I consulted Dr. Sears who recommended we give the patient a dose of Flomax and he will see him tomorrow in the office. Departure - Departure Disposition: 01 Home, Self Care Clinical Impression: Urinary retention Condition: Stable Instructions: ED Catheter Care Laguerre, ED Retention Urinary Male Follow-Up: John Sears MD [Provider Admit Priv/Credential] - Comments: Jostin today it looks like you had some urinary retention and we have placed a laguerre catheter and given you a dose of Flomax. I spoken to Dr. Sears and he wants you to see him in his clinic in the morning. Forms: PCP List Discharge Date/Time: 06/04/23 21:55
[2023-06-04] MEDS: TAMSULOSIN 0.4 MG CAPSULE PO STA (21:47)
== END 2023-06-04 21:55 | disposition home or self-care (01) ==
LOC: ED 20:09
DX: G89.18 Other acute postprocedural pain (principal); R33.9 Retention of urine, unspecified; R10.2 Pelvic and perineal pain; Z96.0 Presence of urogenital implants
CPT/HCPCS: 51702; 99283

== ENCOUNTER 2023-09-15 09:26 | Outpatient (CLI) | payer OTHER ==
--- NOTE | 2023-09-15 21:29 | Ultrasound Report ---
PROCEDURE: Renal (Retroperitoneal) INDICATIONS: URETERIC STONE TECHNIQUE: Real-time scanning was performed of the retroperitoneal organs, with image documentation. COMPARISON: CT of abdomen and pelvis dated 05/21/2023. FINDINGS: Kidneys: Kidneys are normal in size. Right kidney measures 8.5 cm long; left kidney measures 10.6 c m long. Right renal cortical thickness is 0.8 cm; left renal cortical thickness is 0.6 cm. No solid masses or hydronephrosis. Echogenic focus in upper pole and mid pole of left kidney are seen measure s 5 mm and 9 mm in size. Bladder: Pre-void bladder volume is 212.67 mL. Post-void residual is 0.45 mL. Pre-void images demo nstrate no intraluminal masses or stones. On pre-void images, bilateral ureteral jets are noted with color Doppler interrogation. (Of note, ureteral jets may not be detectable in up to 25% of cases du e to insufficient differences in specific gravity between ureteral and bladder urine). Miscellaneous: No free abdominal fluid. IMPRESSION: 1. 2 nonobstructing left renal calculi as described above. No solid-appearing renal lesion. No hydron ephrosis. 2. Normal-appearing urinary bladder. No significant postvoid residual. Reviewed by: Catalino Vazquez MD on 09/15/2023 9:28 PM PDT Approved by: Catalino Vazquez MD on 09/15/2023 9:28 PM PDT Station ID: [id number]
== END 2023-09-15 09:27 | disposition home or self-care (01) ==
LOC: DI 09:26
PROVIDERS: ATTEND Urology
DX: N20.0 Calculus of kidney (principal)